=== PATIENT | male | born 1950 | race Two or more races ===

== ENCOUNTER 2024-09-04 12:17 | Emergency (ER) | payer BC, OTHER ==
[~2024-09-04] VITALS: Ht 170.2 cm; Wt 63.8 kg
[~2024-09-04 12:17] MED LIST: FINA5TAB4 PO; HYDR25TA4 PO; LISI40TA16 PO; SIMV20TA20 PO; SITA50TA28 PO; TAMS0.4C39 PO
--- NOTE | 2024-09-04 12:41 | ED.PDOC ---
History of Present Illness HPI Comments 73-year-old male with PMHx HTN, HLD, Depression brought in by EMS presents with a chief complaint of medical clearance for psychiatric holding. Per EMS, family had patient evaluated for some psychiatric issues and was going to be placed on a 5150 hold by the [facility] [place]. However, when agents from critical access hospital reviewed the case, they stated to family that patient needs a medical clearance prior to being placed on a hold. Patient was also found to be hypertensive at 180/100 per EMS. Chief Complaint: High Blood Pressure Time Seen by MD: 12:22 Reviewed Notes: Nurses Notes, Medications, Allergies Allergies: Coded Allergies: Ciprofloxacin (Verified Allergy, Unknown, 04/21/16) Penicillins (Verified Allergy, Unknown, 04/21/16) Home Meds Reported Medications Simvastatin (Simvastatin) 20 Mg Tab, 1 TAB PO QPM, #30 TAB 5 Refills 04/22/16 Sitagliptin-Metformin Hcl (JANUMET XR) 1 Tab Tab, 1 TAB PO BID, TAB 04/22/16 Tamsulosin Hcl (Tamsulosin Hcl) 0.4 Mg Cap, 0.4 MG PO QPM for 30 Days, MG 04/22/16 Finasteride (Finasteride) 5 Mg Tab, 5 MG PO DAILY for 30 Days, MG 04/22/16 Lisinopril (Lisinopril) 40 Mg Tab, 40 MG PO DAILY for 30 Days, MG 04/22/16 Hydrochlorothiazide (Hydrochlorothiazide) 25 Mg Tab, 25 MG PO DAILY for 30 Days, MG 04/22/16 Information Source: Relative (Child), Emergency Med Personnel Mode of Arrival: EMS Severity: Moderate Timing: Hours Duration: Since onset Prehospital treatment: Accucheck, 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 Past Medical History PAST MEDICAL HISTORY: DM, High Lipids, HTN Surgical History: Denies all surgeries Family History Family History: No family hx of HTN, No family hx of Stroke Social History Smoker: Non-Smoker Alcohol: Denies ETOH Use Drugs: Denies Drug Use Lives In: Home Constitutional: denies: chills, diaphoresis, fatigue, fever, malaise, sweats, weakness, others EENTM: denies: blurred vision, double vision, ear bleeding, ear discharge, ear drainage, ear pain, ear ringing, eye pain, eye redness, hearing loss, mouth pain, mouth swelling, nasal discharge, nose bleeding, nose congestion, nose pain, photophobia, tearing, throat pain, throat swelling, voice changes, others Respiratory: denies: cough, hemoptysis, orthopnea, SOB at rest, shortness of breath, SOB with excertion, stridor, wheezing, others Cardiovascular: denies: chest pain, dizzy spells, diaphoresis, Dyspnea on exertion, edema, irregular heart beat, left arm pain, lightheadedness, palpitations, PND, syncope, others Gastrointestinal: denies: abdomen distended, abdominal pain, blood streaked bowels, constipated, diarrhea, dysphagia, difficulty swallowing, hematemesis, melena, nausea, poor appetite, poor fluid intake, rectal bleeding, rectal pain, vomiting, others Genitourinary: denies: burning, dysuria, flank pain, frequency, hematuria, incontinence, penile discharge, penile sore, pain, testicle pain, testicle swelling, urgency, others Neurological: denies: dizziness, fainting, headache, left sided numbness, left sided weakness, numbness, paresthesia, pre-existing deficit, right sided numbness, right sided weakness, seizure, speech problems, tingling, tremors, weakness, others Musculoskeletal: denies: back pain, gout, joint pain, joint swelling, muscle pain, muscle stiffness, neck pain, others Integumetry: denies: bruises, change in color, change in hair/nails, dryness, laceration, lesions, lumps, rash, wounds, others Allergic/Immunocompromised: denies: Difficulty Healing, Frequent Infections, Hives, Itching, others Hematologic/Lymphatic: denies: anemia, blood clots, easy bleeding, easy bruising, swollen glands, others Endocrine: denies: excessive hunger, excessive sweating, excessive thirst, excessive urination, flushing, intolerance to cold, intolerance to heat, unexplained weight gain, unexplained weight loss, others Psychiatric: reports: others (MEDICAL CLEARANCE); denies: anxiety, bipolar disorder, depression, hopeless, panic disorder, schizophrenia, sleepless, suicidal All Other Systems: Reviewed and Negative Physical Exam General Appearance: No Apparent Distress HEENT: Normal ENT Inspection, Pharynx Normal, TMs Normal Neck: Full Range of Motion, Non-Tender, Normal, Normal Inspection Respiratory: Chest Non-Tender, Lungs Clear, No Accessory Muscle Use, No Respiratory Distress, Normal Breath Sounds Cardiovascular: No Edema, No JVD, No Murmur, No Gallop, Normal Peripheral Pulses, Regular Rate/Rhythm Breast Exam: Deferred Gastrointestinal: No Organomegaly, Non Tender, No Pulsatile Mass, Normal Bowel Sounds, Soft Genitalia: Deferred Pelvic: Deferred Rectal: Deferred Extremities: No calf tenderness, Normal capillary refill, Normal inspection, Normal range of motion, Non-tender, No pedal edema Musculoskeletal : Apperance: Normal 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 Was a procedure done?: No EKG EKG : Pulse Rate (adult): 95 [place]: Normal Cardiac Rhythm: NSR Block: RBBB Hypertrophy: None ST: Normal Differential Dx Considerations may include: 5150, depression, suicidal, confusion X-Ray, Labs, Meds, VS Vital Signs Date Time Temp Pulse Resp B/P (MAP) Pulse Ox O2 Delivery O2 Flow Rate FiO2 09/04/24 14:00 75 16 109/69 (82) 97 09/04/24 13:53 124/67 09/04/24 13:08 73 18 95 Room Air* 0 21 09/04/24 13:08 97.5 73 16 156/88 (110) 95 97.5 09/04/24 12:55 160/83 09/04/24 12:41 95 09/04/24 12:33 98.7 96 18 168/96 (120) 96 98.7 09/04/24 12:21 95 Lab Test 09/04/24 13:09 09/04/24 13:04 Range/Units White Blood Count 6.5 4.4-10.8 10^3/uL Red Blood Count 5.70 4.5-5.90 10^6/uL Hemoglobin 17.4 13.5-17.5 g/dL Hematocrit 48.6 41.0-53.0 % Mean Corpuscular Volume 85.2 80.0-100.0 fL Mean Corpuscular Hemoglobin 30.6 28.0-32.0 pg Mean Corpuscular Hemoglobin Concent 35.9 32.0-36.0 g/dL Red Cell Distribution Width 14.2 11.8-14.3 % Platelet Count 195 140-450 10^3/uL Mean Platelet Volume 10.5 6.9-10.8 fL Neutrophils (%) (Auto) 76.2 37.0-80.0 % Lymphocytes (%) (Auto) 17.3 10.0-50.0 % Monocytes (%) (Auto) 5.7 0.0-12.0 % Eosinophils (%) (Auto) 0.3 0.0-7.0 % Basophils (%) (Auto) 0.5 0.0-2.0 % Neutrophils # (Auto) 5.0 1.6-8.6 10 ^3/uL Lymphocytes # (Auto) 1.1 0.4-5.4 10 ^3/uL Monocytes # (Auto) 0.4 0-1.3 10 ^3/uL Eosinophils # (Auto) 0 0-0.8 10 ^3/uL Basophils # (Auto) 0 0-0.2 10 ^3/uL Nucleated Red Blood Cells 0.7 % Sodium Level 139 136-145 mmol/L Potassium Level 3.4 L 3.5-5.1 mmol/L Chloride Level 100 98-107 mmol/L Carbon Dioxide Level 26 20-31 mmol/L Anion Gap 13 5-15 Blood Urea Nitrogen 15 9-23 mg/dL Creatinine 0.88 0.700-1.30 mg/dL Glomerular Filtration Rate Calc 91 >90 mL/min BUN/Creatinine Ratio 17.0 10.0-20.0 Serum Glucose 130 H 74-106 mg/dL Calcium Level 9.1 8.7-10.4 mg/dL Urine Color Yellow Yellow Urine Clarity Clear Clear Urine pH 5.5 5.0-9.0 Urine Specific [place] 1.029 1.001-1.035 Urine Protein 1+ H Negative Urine Ketones 3+ H Negative Urine Blood Negative Negative /uL Urine Nitrite Negative Negative Urine Bilirubin Negative Negative Urine Urobilinogen 2 H Negative mg/dL Urine Leukocyte Esterase Negative Negative /uL Urine RBC 2 0 - 3 /hpf Urine Microscopic WBC 6 H 0-3 /HPF Urine Squamous Epithelial Cells Few <5 /hpf Urine Bacteria None seen None Seen /hpf Urine Mucus Few None Seen Urine Glucose Trace Normal mg/dL Current Medications Medications (Trade) Dose Ordered Sig/Carlos Route Start Time Stop Time Status Last Admin Clonidine HCl (Catapres Tablet) 0.2 mg ONCE ONCE PO 6/12/25 12:45 09/04/24 12:46 DC 09/04/24 12:55 The CBC is within normal limits The chemistry panel is within normal limits The urine test is positive for UTI The patient was given Macrobid p.o. The patient is now considered to be medically cleared for the psychiatric evaluation Time of 1ST Reevaluation: 12:52 Reevaluation 1ST: Unchanged Patient Education/Counseling: Diagnosis, Treatment, Prognosis Family Education/Counseling: Diagnosis, Treatment, Prognosis Departure 1 Departure Time of Disposition: 15:03 Impression: Primary Impression: Hypertensive urgency Additional Impressions: Confusion UTI (urinary tract infection) Qualified Codes: N30.00 - Acute cystitis without hematuria Disposition: 30 STILL A PATIENT Condition: Fair Critical Care Note Critical Care Time?: No Stability Stability form required: No Heart Score Heart Score: Heart Score Response (Comments) Value History N/A 0 EKG N/A 0 Age N/A 0 Risk Factors N/A 0 Troponin N/A 0 Total 0 I personally scribed for NICOL CAMPBELL MD ([email or web address]) on 09/04/24 at 12:41. Electronically submitted by Manan Payne ([email or web address]). NICOL CAMPBELL MD Sep 04, 2024 12:41
[2024-09-04] MEDS: cloNIDine HCL 0.1 MG TAB PO ONE (12:55)
[2024-09-04 13:08] VITALS: PULSE 73; RESP 18; O2SAT 95
[2024-09-04 13:21] LABS: Basophils # (auto) 0 10 ^3/uL (0-0.2); Basophils % (auto) 0.5 % (0.0-2.0); Eosinophils # (auto) 0 10 ^3/uL (0-0.8); Eosinophils % (auto) 0.3 % (0.0-7.0); Hematocrit 48.6 % (41.0-53.0); Hemoglobin 17.4 g/dL (13.5-17.5); Lymphocytes # (auto) 1.1 10 ^3/uL (0.4-5.4); Lymphocytes % (auto) 17.3 % (10.0-50.0); Mean Corpuscular Hemoglobin 30.6 pg (28.0-32.0); Mean Corpuscular Hgb Conc. 35.9 g/dL (32.0-36.0); Mean Corpuscular Volume 85.2 fL (80.0-100.0); Monocytes # (auto) 0.4 10 ^3/uL (0-1.3); Monocytes % (auto) 5.7 % (0.0-12.0); Neutrophils % (auto) 76.2 % (37.0-80.0); Nucleated Red Blood Cells % 0.7 %; Platelet Count (auto) 195 10^3/uL (140-450); Red Cell Distribution Width 14.2 % (11.8-14.3); White Blood Cell 6.5 10^3/uL (4.4-10.8)
[2024-09-04 13:33] LABS: Chloride 100 mmol/L (98-107); Sodium 139 mmol/L (136-145)
[2024-09-04 13:34] LABS: Anion Gap 13 (5-15); Carbon Dioxide 26 mmol/L (20-31)
[2024-09-04 13:35] LABS: Calcium 9.1 mg/dL (8.7-10.4)
[2024-09-04 13:39] LABS: Blood Urea Nitrogen 15 mg/dL (9-23); Potassium 3.4 mmol/L (3.5-5.1)
[2024-09-04 13:40] LABS: Glucose 130 mg/dL (74-106)
[2024-09-04 13:59] LABS: Urine Bacteria None Seen /hpf (None Seen)
[2024-09-04 14:23] LABS: Urine Blood Negative /uL (Negative); Urine Clarity Clear (Clear); Urine Color Yellow (Yellow); Urine Mucus FEW (None Seen); Urine Protein, UAD 1+ (Negative); Urine Specific Gravity 1.029 (1.001-1.035); Urine Squamous Epithelial Cell FEW /hpf (<5); Urine Urobilinogen 2 mg/dL (Negative); Urine WBC 6 /HPF (0-3); Urine pH 5.5 (5.0-9.0)
[2024-09-04] MEDS: NITROFURANTOIN 100 mg CAP PO ONE (15:43)
--- NOTE | 2024-09-04 16:30 | DVH ---
EXAM: CT HEAD WITHOUT CONTRAST INDICATION: DIALLO TECHNIQUE: CT of the head without intravenous contrast. Radiation Dose : 1. Head: CT Dose: CTDI volume is 53.17 mGy. Dose-length product is 863.9 mGy*cm The dose indicators for CT are the volume Computed Tomography (CT) Dose Index (CTDIvol) and the Dose Length Product (DLP), and are measured in units of mGy and mGy-cm, respectively. These indicators are not patient dose, but values generated from the CT scanner acquisition factors. The report includes radiation exposure data for exposures received during this examination. COMPARISON: None FINDINGS: There is no evidence of acute intracranial hemorrhage, extra-axial collection, mass effect, midline s hift, herniation or hydrocephalus. The ventricles, sulci and cisterns are age appropriate. The campbell-white differentiation is intact. Patchy periventricular and subcortical white matter hypoattenuation is nonspecific but may be related to small vessel ischemic disease. The visualized paranasal sinuses and mastoid air cells are clear. The surrounding soft tissues and osseous structures are unremarkable. IMPRESSION: 1. No acute intracranial abnormality. 2. Chronic microvascular ischemic changes. Radiation optimization: All CT scans at this facility use at least one of these dose optimization giovanni hniques: automated exposure control mA and/or kV adjustment per patient size (includes targeted exam s where dose is matched to clinical indication) or iterative reconstruction.
--- NOTE | 2024-09-04 18:32 | DVHINCON2 ---
Date of Service if different f: Sep 04, 2024 Consultation (MORO) Labs Laboratory Tests Test 09/04/24 13:04 09/04/24 13:09 Urine Color Yellow (Yellow) Urine Clarity Clear (Clear) Urine pH 5.5 (5.0-9.0) Urine Specific [place] 1.029 (1.001-1.035) Urine Protein 1+ (Negative) Urine Ketones 3+ (Negative) Urine Blood Negative /uL (Negative) Urine Nitrite Negative (Negative) Urine Bilirubin Negative (Negative) Urine Urobilinogen 2 mg/dL (Negative) Urine Leukocyte Esterase Negative /uL (Negative) Urine RBC 2 /hpf (0 - 3) Urine Microscopic WBC 6 /HPF (0-3) Urine Squamous Epithelial Cells Few /hpf (<5) Urine Bacteria None seen /hpf (None Seen) Urine Mucus Few (None Seen) Urine Glucose Trace mg/dL (Normal) White Blood Count 6.5 10^3/uL (4.4-10.8) Red Blood Count 5.70 10^6/uL (4.5-5.90) Hemoglobin 17.4 g/dL (13.5-17.5) Hematocrit 48.6 % (41.0-53.0) Mean Corpuscular Volume 85.2 fL (80.0-100.0) Mean Corpuscular Hemoglobin 30.6 pg (28.0-32.0) Mean Corpuscular Hemoglobin Concent 35.9 g/dL (32.0-36.0) Red Cell Distribution Width 14.2 % (11.8-14.3) Platelet Count 195 10^3/uL (140-450) Mean Platelet Volume 10.5 fL (6.9-10.8) Neutrophils (%) (Auto) 76.2 % (37.0-80.0) Lymphocytes (%) (Auto) 17.3 % (10.0-50.0) Monocytes (%) (Auto) 5.7 % (0.0-12.0) Eosinophils (%) (Auto) 0.3 % (0.0-7.0) Basophils (%) (Auto) 0.5 % (0.0-2.0) Neutrophils # (Auto) 5.0 10 ^3/uL (1.6-8.6) Lymphocytes # (Auto) 1.1 10 ^3/uL (0.4-5.4) Monocytes # (Auto) 0.4 10 ^3/uL (0-1.3) Eosinophils # (Auto) 0 10 ^3/uL (0-0.8) Basophils # (Auto) 0 10 ^3/uL (0-0.2) Nucleated Red Blood Cells 0.7 % Sodium Level 139 mmol/L (136-145) Potassium Level 3.4 mmol/L (3.5-5.1) Chloride Level 100 mmol/L (98-107) Carbon Dioxide Level 26 mmol/L (20-31) Anion Gap 13 (5-15) Blood Urea Nitrogen 15 mg/dL (9-23) Creatinine 0.88 mg/dL (0.700-1.30) Glomerular Filtration Rate Calc 91 mL/min (>90) BUN/Creatinine Ratio 17.0 (10.0-20.0) Serum Glucose 130 mg/dL (74-106) Calcium Level 9.1 mg/dL (8.7-10.4) Appetite: Poor Appearance: Stated age, Groomed Psychomotor activity: Lethargic Behavioral: Withdrawn Eye contact: Avoids Speech: WNL Affect: Blunted, Guarded Mood: Neutral Thought processes: Preservative Thought content: Paranoid Suicidal ideations: Absent Homicidal ideations: Absent Orientation: Person, Place, Confused Memory intact: Poor Intellect: Average Abstractability: Marginal Concentration: Limited Attention: Limited Judgement: Poor Insight: Poor Vitals Vital Signs Date Time Temp Pulse Resp B/P (MAP) Pulse Ox O2 Delivery O2 Flow Rate FiO2 09/04/24 16:00 97.8 63 14 149/70 (96) 98 97.8 09/04/24 13:08 Room Air* 0 21 Treatment plan discussed: With staff Medication adjusted: Yes Diagnosis: unspecified psychosis V bipolar disorder Plan : Patient has delusions of family wanting to harm or poison him, often refusing food and not participating in his hygiene, not showering for 2 years recommend 5150hold for GD and transfer to inpatient psychiatric facility for stabilization and treatment recommend to restart olanzapine 5mg po qhs History of Present Illness Reason for Consult : psychiatric evaluation and placement HPI : This is a 73-year-old Lithuanian-speaking male with history of psychosis brought in by ambulance after family called for PMRT team for evaluation. PMRT requested medical clearance on and patient was brought here to ED for. Patient is evaluated via Telepsychiatry with family present. Family provided Lithuanian translation. Per family, patient had history of depression and paranoia in 2017. He did see psychiatry and prescribe sertraline 50 mg in July 2020. Family report that he began throwing away items, saying he was starting his life over and spent over $30,000. Patient was later started on olanzapine 7.5 mg in November of 2020, but stopped the same year and refusing follow up. Family reports, the last 2 days, refused to eat after left to airport to drop off daughter and returned. He claimed that is now a ghost and unsure why she is here. He has been refusing to shower for the past two years, finally showered 2 days ago. He often refuses food at home, believing family wants to poison or kill him. When asked about this, patient denies. Reports not sure why hes here. He does report auditory hallucinations of noises. He has visual hallucinations of shadows by the window. He reports sleeping fine sometimes. significant paranoia. He denies feeling depressed, hopeless. He denies suicidal/homicidal ideation. Patient does not appear to be a reliable historian. Per family, patient has not left the house in 8 years until now. per report, he did eat here in the hospital Past Psychiatric History : Family denies prior psych admissions, holds or suicide attempts. They deny current outpatient mental services as patient refuses to go. No current prescribed psychotropic medications Past Medical History : He has hx of HTN, elevated cholesterol Social History : patient lives at home with , son and daughter-inlaw. No known family history. Patient unable to recall when last held employment or provide any detail. He has known history of substance abuse. No access to firearms. RONNELL WERNER DNP Sep 04, 2024 18:32
[2024-09-04 19:30] VITALS: PULSE 63; RESP 12; O2SAT 97
--- NOTE | 2024-09-04 20:33 | ECG ---
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
[2024-09-04] MEDS: OLANZapine 5 MG TAB PO ONE (22:31)
[2024-09-05 09:00] VITALS: PULSE 61; RESP 11; O2SAT 97
[2024-09-05 19:46] VITALS: PULSE 70; RESP 18; O2SAT 96
[2024-09-06 08:00] VITALS: PULSE 74; RESP 16; O2SAT 98
[2024-09-06 19:30] VITALS: PULSE 71; RESP 16; O2SAT 97
[2024-09-07 08:00] VITALS: PULSE 100; RESP 16; O2SAT 96
[2024-09-07] MEDS: SODIUM CHLORIDE 0.9% 1,000 ML IV ONE (13:07)
[2024-09-07 19:28] VITALS: O2SAT 99
[2024-09-08 19:00] VITALS: BP 167/73; PULSE 57; RESP 14; TEMP 98
[2024-09-08 19:15] VITALS: O2SAT 94
[2024-09-08] MEDS ORDERED: CEFD300C2 PO (20:04)
== END 2024-09-08 20:30 | disposition home or self-care (01) ==
LOC: EDBD 12:17 → ER 12:23
DX: I16.0 Hypertensive urgency (principal); N39.0 Urinary tract infection, site not specified; R41.0 Disorientation, unspecified; E11.9 Type 2 diabetes mellitus without complications; E78.5 Hyperlipidemia, unspecified; Z88.1 Allergy status to other antibiotic agents; Z88.0 Allergy status to penicillin; Z79.899 Other long term (current) drug therapy; Z79.84 Long term (current) use of oral hypoglycemic drugs
CPT/HCPCS: 36415; 70450; 80048; 81001; 85025; 93005; 96360; 96361; 99285; J7030

== ENCOUNTER 2024-12-13 09:17 | Emergency (ER) | payer OTHER ==
[~2024-12-13] VITALS: Ht 170.2 cm; Wt 70.5 kg
[~2024-12-13 09:17] MED LIST changes: +CEFD300C2 PO
--- NOTE | 2024-12-13 09:52 | ED.PDOC ---
History of Present Illness HPI Comments 74-year-old male presents here status post fall. Patient was sitting on the toilet when he fell. This was witnessed by his [id number]. There was no head trauma he states he just tripped and fell. Per [id number] he was in rehab several months ago due to weakness. She states he has been having near falls for the last several weeks but has not had a fall as bad as this morning. This morning the fall woke him up from sleep. He was found on the ground. Patient currently denies any headache. He is not on any blood thinners. He denies any dizziness nausea vomiting or diarrhea. Has not been sick recently. However there is report of decreased appetite. Chief Complaint: General Weakness Time Seen by MD: 09:40 Reviewed Notes: Medications, Allergies Allergies: Coded Allergies: Ciprofloxacin (Verified Allergy, Unknown, 04/21/16) Penicillins (Verified Allergy, Unknown, 04/21/16) Home Meds Active Scripts Cefdinir (Cefdinir) 300 Mg Cap, 1 CAP PO BID for 7 Days, #14 CAP Prov:ARVIN VASQUEZ MD 09/08/24 Reported Medications Simvastatin (Simvastatin) 20 Mg Tab, 1 TAB PO QPM, #30 TAB 5 Refills 04/22/16 Sitagliptin-Metformin Hcl (JANUMET XR) 1 Tab Tab, 1 TAB PO BID, TAB 04/22/16 Tamsulosin Hcl (Tamsulosin Hcl) 0.4 Mg Cap, 0.4 MG PO QPM for 30 Days, MG 04/22/16 Finasteride (Finasteride) 5 Mg Tab, 5 MG PO DAILY for 30 Days, MG 04/22/16 Lisinopril (Lisinopril) 40 Mg Tab, 40 MG PO DAILY for 30 Days, MG 04/22/16 Hydrochlorothiazide (Hydrochlorothiazide) 25 Mg Tab, 25 MG PO DAILY for 30 Days, MG 04/22/16 Information Source: Patient, Relative, Emergency Med Personnel Mode of Arrival: EMS Severity: Moderate Timing: Hours Duration: Since onset Prehospital treatment: None Past Medical History PAST MEDICAL HISTORY: DM, High Lipids, HTN Surgical History: Denies all surgeries Family History Family History: No family hx of HTN, No family hx of Stroke Social History Smoker: Non-Smoker Alcohol: Denies ETOH Use Drugs: Denies Drug Use Lives In: Home Constitutional: reports: weakness; denies: chills, diaphoresis, fatigue, fever, malaise, sweats, others EENTM: denies: blurred vision, double vision, ear bleeding, ear discharge, ear drainage, ear pain, ear ringing, eye pain, eye redness, hearing loss, mouth pain, mouth swelling, nasal discharge, nose bleeding, nose congestion, nose pain, photophobia, tearing, throat pain, throat swelling, voice changes, others Respiratory: denies: cough, hemoptysis, orthopnea, SOB at rest, shortness of breath, SOB with excertion, stridor, wheezing, others Cardiovascular: denies: chest pain, dizzy spells, diaphoresis, Dyspnea on exertion, edema, irregular heart beat, left arm pain, lightheadedness, palpitations, PND, syncope, others Gastrointestinal: denies: abdomen distended, abdominal pain, blood streaked bowels, constipated, diarrhea, dysphagia, difficulty swallowing, hematemesis, melena, nausea, poor appetite, poor fluid intake, rectal bleeding, rectal pain, vomiting, others Genitourinary: denies: burning, dysuria, flank pain, frequency, hematuria, incontinence, penile discharge, penile sore, pain, testicle pain, testicle swelling, urgency, others Neurological: reports: weakness; denies: dizziness, fainting, headache, left sided numbness, left sided weakness, numbness, paresthesia, pre-existing deficit, right sided numbness, right sided weakness, seizure, speech problems, tingling, tremors, others Musculoskeletal: denies: back pain, gout, joint pain, joint swelling, muscle pain, muscle stiffness, neck pain, others Integumetry: denies: bruises, change in color, change in hair/nails, dryness, laceration, lesions, lumps, rash, wounds, others Allergic/Immunocompromised: denies: Difficulty Healing, Frequent Infections, Hives, Itching, others Hematologic/Lymphatic: denies: anemia, blood clots, easy bleeding, easy bruising, swollen glands, others Endocrine: denies: excessive hunger, excessive sweating, excessive thirst, excessive urination, flushing, intolerance to cold, intolerance to heat, unexplained weight gain, unexplained weight loss, others Psychiatric: denies: anxiety, bipolar disorder, depression, hopeless, panic disorder, schizophrenia, sleepless, suicidal, others All Other Systems: Reviewed and Negative Physical Exam General Appearance: No Apparent Distress, Normal HEENT: Normal ENT Inspection, Pharynx Normal, TMs Normal Neck: Full Range of Motion, Non-Tender, Normal, Normal Inspection Respiratory: Chest Non-Tender, Lungs Clear, No Accessory Muscle Use, No Respiratory Distress, Normal Breath Sounds Cardiovascular: No Edema, No JVD, No Murmur, No Gallop, Normal Peripheral Pulses, Regular Rate/Rhythm Breast Exam: Deferred Gastrointestinal: No Organomegaly, Non Tender, No Pulsatile Mass, Normal Bowel Sounds, Soft Genitalia: Deferred Pelvic: Deferred Rectal: Deferred Extremities: No calf tenderness, Normal capillary refill, Normal inspection, Normal range of motion, Non-tender, No pedal edema, Other (Nontender CT and L- spine) Musculoskeletal : Apperance: Normal Neurologic: Alert, speech teacher II-XII nml as Tested, No Motor Deficits, Normal Affect, Normal Mood, No Sensory Deficits Cerebellar Function: Normal Reflexes: Normal Skin: Dry, Normal Color, Warm Lymphatic: No Adenopathy Was a procedure done? 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 No significant ST changes Differential Dx Considerations may include: Intracranial hemorrhage, closed head injury, UTI, pneumonia, generalized weakness, TIA, stroke, electrolyte abnormality, dehydration, acute coronary syndrome X-Ray, Labs, Meds, VS Vital Signs Date Time Temp Pulse Resp B/P (MAP) Pulse Ox O2 Delivery O2 Flow Rate FiO2 12/13/24 10:50 97 Room Air* 0 21 12/13/24 10:45 86 18 97 Room Air* 0 21 12/13/24 10:39 204/93 12/13/24 10:22 98.7 86 18 146/79 (101) 97 98.7 12/13/24 09:50 91 12/13/24 09:25 98.7 102 18 190/99 97 98.7 Lab Test 12/13/24 12:00 12/13/24 11:24 12/13/24 10:50 Range/Units Troponin I High Sensitivity 11 8 </=54 ng/L POC Glucose 180 H 70-106 mg/dl White Blood Count 10.0 4.4-10.8 10^3/uL Red Blood Count 5.25 4.5-5.90 10^6/uL Hemoglobin 16.1 13.5-17.5 g/dL Hematocrit 44.7 41.0-53.0 % Mean Corpuscular Volume 85.1 80.0-100.0 fL Mean Corpuscular Hemoglobin 30.6 28.0-32.0 pg Mean Corpuscular Hemoglobin Concent 35.9 32.0-36.0 g/dL Red Cell Distribution Width 13.8 11.8-14.3 % Platelet Count 219 140-450 10^3/uL Mean Platelet Volume 10.0 6.9-10.8 fL Neutrophils (%) (Auto) 84.5 H 37.0-80.0 % Lymphocytes (%) (Auto) 8.1 L 10.0-50.0 % Monocytes (%) (Auto) 7.1 0.0-12.0 % Eosinophils (%) (Auto) 0.1 0.0-7.0 % Basophils (%) (Auto) 0.2 0.0-2.0 % Neutrophils # (Auto) 8.5 1.6-8.6 10 ^3/uL Lymphocytes # (Auto) 0.8 0.4-5.4 10 ^3/uL Monocytes # (Auto) 0.7 0-1.3 10 ^3/uL Eosinophils # (Auto) 0 0-0.8 10 ^3/uL Basophils # (Auto) 0 0-0.2 10 ^3/uL Nucleated Red Blood Cells 0.1 % Sodium Level 139 136-145 mmol/L Potassium Level 3.5 3.5-5.1 mmol/L Chloride Level 100 98-107 mmol/L Carbon Dioxide Level 27 20-31 mmol/L Anion Gap 12 5-15 Blood Urea Nitrogen 15 9-23 mg/dL Creatinine 0.95 0.700-1.30 mg/dL Glomerular Filtration Rate Calc 84 >90 mL/min BUN/Creatinine Ratio 15.8 10.0-20.0 Serum Glucose 190 H 74-106 mg/dL Calcium Level 9.2 8.7-10.4 mg/dL Current Medications Medications (Trade) Dose Ordered Sig/Carlos Route Start Time Stop Time Status Last Admin Sodium Chloride 500 ml @ 500 mls/hr Q1H ONCE IV 12/13/24 10:15 12/13/24 11:14 DC 9/20/25 10:39 Hydralazine HCl (Apresoline Injection) 5 mg ONCE ONCE IV 12/13/24 10:30 12/13/24 10:31 DC 12/13/24 10:[address] [address] Ph: [phone] DIAGNOSTIC IMAGING Diagnostic Imaging Report : [id number] Signed PATIENT: NIESHA DEUTSCH ACCT: [id number] UNIT: [id number] : 1950 LOC: ER ROOM / BED: / AGE / SEX: 74 / M ADM STATUS: REG ER SERVICE 1009 ORDERING PHYSICIAN: ERNST CH MD PROCEDURE(s): HWOCT - HEAD WITHOUT CONTRAST REASON: Rule out intracranial hemorrhage ORDER NUMBER(s): [id number], ACCESSION NUMBER(s): [id number] EXAM: CT HEAD WITHOUT CONTRAST INDICATION: Rule out intracranial hemorrhage TECHNIQUE: CT of the head without intravenous contrast. Radiation Dose Information: CT Dose: CTDI volume is 54 mGy. Dose-length product is 864 mGy*cm The dose indicators for CT are the volume Computed Tomography (CT) Dose Index (CTDIvol) and the Dose Length Product (DLP), and are measured in units of mGy and mGy-cm, respectively. These indicators are not patient dose, but values generated from the CT scanner acquisition factors. The report includes radiation exposure data for exposures received during this examination. COMPARISON: CT HEAD WITHOUT CONTRAST on DOS: 09/04/24 FINDINGS: There is no evidence of acute intracranial hemorrhage, extra-axial collection, mass effect, midline shift, herniation or hydrocephalus. The ventricles, sulci and cisterns are age appropriate. The campbell-white differentiation is intact. Patchy periventricular and subcortical white matter hypoattenuation is nonspecific but may be related to small vessel ischemic disease. The visualized paranasal sinuses and mastoid air cells are clear. The surrounding soft tissues and osseous structures are unremarkable. IMPRESSION: 1. No acute intracranial abnormality. ATED BY: SIMONA MCDOWELL MD DICTATED DATE/TIME: 12/13/24 1052 SIGNED BY: SIMONA MCDOWELL MD SIGNED DATE/TIME: 12/13/24 [address] [facility] [address] [place] [address] Ph: [phone] DIAGNOSTIC IMAGING Diagnostic Imaging Report : [id number] Signed PATIENT: NIESHA DEUTSCH ACCT: [id number] UNIT: [id number] : 1950 LOC: ER ROOM / BED: / AGE / SEX: 74 / M ADM STATUS: REG ER SERVICE 1009 ORDERING PHYSICIAN: ERNST CH MD PROCEDURE(s): CXR2 - CHEST TWO VIEWS ROUTINE REASON: Rule out arrhythmia ORDER NUMBER(s): [id number], ACCESSION NUMBER(s): [id number] CHEST RADIOGRAPH Indication: Rule out arrhythmia Technique: Frontal and lateral view of the chest was obtained Comparison: None FINDINGS: Lines and Tubes: None Lungs: Congestion Pleura: No effusion. No pneumothorax. Cardiomediastinal contours: Unremarkable Bones: Unremarkable IMPRESSION: Increased interstital prominence. This may represent pulmonary vascular congestion and/or viral pneumonia. Clinical correlation advised. ATED BY: JASVIR OCONNOR MD DICTATED DATE/TIME: 12/13/241049 SIGNED BY: JASVIR OCONNOR MD SIGNED DATE/TIME: 12/13/24 105 74-year-old male presents here status post fall off the toilet. He does have a history of frequent falls. He is not on blood thinners. There was no evidence of trauma on my evaluation. However given his age I have ordered a CT scan of the brain for evaluation for intracranial hemorrhage. He additionally was found to have a very high blood pressure of 190/99. He does have a known history of high blood pressure and did not take his high blood pressure medication today. I will be giving him hydralazine 5 mg IV in the ER. At this time I had a long conversation with the [id number] spoke to her who spoke to father. Although he has been having frequent missed falls and having a fall today, patient does not want to be admitted. He is noncompliant with physical therapy at home. The family also does not want him to be admitted and are comfortable taking care of him at home. I advised them that he is risk of serious fall and intracranial hemorrhage. They are aware of that. At this time CBC, BMP, CT scan of the brain, chest x-ray troponin has been ordered including a urinalysis. CBC BMP are within normal limits. CT scan of the brain also within normal limits. Chest x-ray demonstrates increased interstitial prominence which may represent pulmonary vascular congestion and/or viral pneumonia. Patient has been unable to provide a urine sample at this time. I did speak to [id number] again advised her of the results. She is aware that we do not have a UA back today. She is aware of the chest x-ray results. She states he did have flu-like symptoms few days ago but has back to baseline now. Strongly advised her to monitor him closely as he had risk of high of falls. Time of 1ST Reevaluation: 10:10 Reevaluation 1ST: Unchanged Patient Education/Counseling: Diagnosis, Treatment Family Education/Counseling: Diagnosis, Treatment SEPSIS Sepsis Screen Date sepsis recognized/suspect: Dec 13, 2024 Time Sepsis recognized/suspect: 922 Recent Procedure: No On Antibiotic Therapy: No Respiratory Rate >20: No Heart Rate >90: Yes Temp<36 C (96.8 F) or >38.3 C: No SBP <90 or MAP <65 mmHG: No New Acute Mental Status Change: No Is the patient on CPAP, BIPAP,: No Physician Orders Urinalysis (12/13/24 10:09) Chest Two Views Routine (12/13/24 10:09) Head Without Contrast (12/13/24 10:09) Electrocardigram (12/13/24 11:09) Electrocardigram (12/13/24 13:09) Vital Signs Date Time Temp Pulse Resp B/P (MAP) Pulse Ox O2 Delivery O2 Flow Rate FiO2 12/13/24 10:50 97 Room Air* 0 21 12/13/24 10:45 86 18 97 Room Air* 0 21 12/13/24 10:39 204/93 12/13/24 10:22 98.7 86 18 146/79 (101) 97 98.7 12/13/24 09:50 91 12/13/24 09:25 98.7 102 18 190/99 97 98.7 Laboratory Tests Test 12/13/24 10:50 White Blood Count 10.0 10^3/uL (4.4-10.8) Medications Medications Dose Ordered Sig/Carlos Route Start Time Stop Time Status Last Admin Dose Admin Hydralazine HCl 5 mg ONCE ONCE IV 12/13/24 10:30 12/13/24 10:31 DC 12/13/24 10:39 Sodium Chloride 500 ml @ 500 mls/hr Q1H ONCE IV 12/13/24 10:15 12/13/24 11:14 DC 12/13/24 10:39 Departure 1 Departure Time of Disposition: 12:47 Impression: Primary Impression: Hypertensive urgency Additional Impression: Frequent falls Disposition: 01 HOME / SELF CARE / HOMELESS Condition: Fair Additional Instructions: Follow up with the primary care physician in 2-3 days. Return to the ER if symptoms worsen or persist. Critical Care Note Critical Care Time?: No Stability Stability form required: No Heart Score Heart Score: Heart Score Response (Comments) Value History N/A 0 EKG N/A 0 Age N/A 0 Risk Factors N/A 0 Troponin N/A 0 Total 0 I personally scribed for ERNST CH MD ([email or web address]) on 12/13/24 at 09:52. Electronically submitted by Mellissa Roberts ([email or web address]). I personally scribed for ERNST CH MD ([email or web address]) on 12/13/24 at 10:24. Electronically submitted by Mellissa Roberts ([email or web address]). I personally scribed for ERNST CH MD ([email or web address]) on 12/13/24 at 11:02. Electronically submitted by Maximo Quintana ([email or web address]). I personally scribed for ERNST CH MD ([email or web address]) on 12/13/24 at 11:06. Electronically submitted by Mellissa Roberts ([email or web address]). I personally scribed for ERNST CH MD ([email or web address]) on 12/13/24 at 11:09. Electronically submitted by Maximo Quintana ([email or web address]). ERNST CH MD Dec 13, 2024 09:52
--- NOTE | 2024-12-13 10:11 | ECG ---
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
[2024-12-13] MEDS: SODIUM CHLORIDE 0.9% 500 ML IV ONE (10:39)
[2024-12-13] MEDS: hydrALAZINE HCL 20 MG/ML VL IV ONE (10:39)
[2024-12-13 10:45] VITALS: PULSE 86; RESP 18; O2SAT 97
--- NOTE | 2024-12-13 10:53 | DVH ---
CHEST RADIOGRAPH Indication: Rule out arrhythmia Technique: Frontal and lateral view of the chest was obtained Comparison: None FINDINGS: Lines and Tubes: None Lungs: Congestion Pleura: No effusion. No pneumothorax. Cardiomediastinal contours: Unremarkable Bones: Unremarkable IMPRESSION: Increased interstital prominence. This may represent pulmonary vascular congestion and/or viral pneum onia. Clinical correlation advised.
--- NOTE | 2024-12-13 10:54 | DVH ---
EXAM: CT HEAD WITHOUT CONTRAST INDICATION: Rule out intracranial hemorrhage TECHNIQUE: CT of the head without intravenous contrast. Radiation Dose Information: CT Dose: CTDI volume is 54 mGy. Dose-length product is 864 mGy*cm The dose indicators for CT are the volume Computed Tomography (CT) Dose Index (CTDIvol) and the Dose Length Product (DLP), and are measured in units of mGy and mGy-cm, respectively. These indicators are not patient dose, but values generated from the CT scanner acquisition factors. The report includes radiation exposure data for exposures received during this examination. COMPARISON: CT HEAD WITHOUT CONTRAST on DOS: 09/04/24 FINDINGS: There is no evidence of acute intracranial hemorrhage, extra-axial collection, mass effect, midline s hift, herniation or hydrocephalus. The ventricles, sulci and cisterns are age appropriate. The campbell-white differentiation is intact. Patchy periventricular and subcortical white matter hypoattenuation is nonspecific but may be related to small vessel ischemic disease. The visualized paranasal sinuses and mastoid air cells are clear. The surrounding soft tissues and osseous structures are unremarkable. IMPRESSION: 1. No acute intracranial abnormality.
[2024-12-13 11:13] LABS: Mean Corpuscular Volume 85.1 fL (80.0-100.0)
[2024-12-13 11:16] LABS: Hematocrit 44.7 % (41.0-53.0); Hemoglobin 16.1 g/dL (13.5-17.5); Mean Corpuscular Hemoglobin 30.6 pg (28.0-32.0); Nucleated Red Blood Cells % 0.1 %
[2024-12-13 11:25] LABS: Chloride 100 mmol/L (98-107); Potassium 3.5 mmol/L (3.5-5.1); Sodium 139 mmol/L (136-145)
[2024-12-13 11:26] LABS: Carbon Dioxide 27 mmol/L (20-31)
[2024-12-13 11:27] LABS: Anion Gap 12 (5-15); Calcium 9.2 mg/dL (8.7-10.4)
[2024-12-13 11:32] LABS: BUN/Creatinine Ratio 15.8 (10.0-20.0); Blood Urea Nitrogen 15 mg/dL (9-23)
[2024-12-13 11:34] LABS: Glucose 190 mg/dL (74-106)
[2024-12-13 12:00] VITALS: BP 151/76; PULSE 83; RESP 18; TEMP 98.7; O2SAT 97
== END 2024-12-13 12:51 | disposition home or self-care (01) ==
LOC: ER 09:17 → EDBD 09:17 → ER 12:51
DX: I16.0 Hypertensive urgency (principal); R29.6 Repeated falls; E11.9 Type 2 diabetes mellitus without complications; I10 Essential (primary) hypertension; E78.5 Hyperlipidemia, unspecified; Z88.1 Allergy status to other antibiotic agents; Z88.0 Allergy status to penicillin; Z79.84 Long term (current) use of oral hypoglycemic drugs; Z79.899 Other long term (current) drug therapy
CPT/HCPCS: 36415; 70450; 71046; 80048; 82947; 84484; 85025; 93005; 96374; 99285; J0360; J7040; 82962